=== PATIENT | female | born 1955 | race Native Hawaiian/Other Pacific Islander ===

== ENCOUNTER 2019-08-09 11:14 | Outpatient (CLI) | payer OTHER | END 2019-08-09 20:22 | disposition home or self-care (01) | LOC: RAD 11:14 | DX: E79.0 Hyperuricemia without signs of inflammatory arthritis and tophaceous disease (principal); M17.0 Bilateral primary osteoarthritis of knee; M19.041 Primary osteoarthritis, right hand; M19.071 Primary osteoarthritis, right ankle and foot; M19.072 Primary osteoarthritis, left ankle and foot ==